=== PATIENT | female | born 1935 | race Caucasian/White ===

== ENCOUNTER 2016-05-31 13:20 | Outpatient (CLI) | payer MEDICARE, OTHER | END 2016-05-31 13:21 | disposition home or self-care (01) | DX: Z12.31 Encounter for screening mammogram for malignant neoplasm of breast (principal) ==

== ENCOUNTER 2016-06-21 08:40 | Outpatient (CLI) | payer MEDICARE, OTHER ==
[2016-06-21 12:46] LABS: ALBUMIN/GLOBULIN RATIO 1.7 (1.0-2.2); BILIRUBIN,TOTAL 0.6 mg/dL (0.2-1.0); CALCIUM 9.5 mg/dL (8.5-10.3); CREATININE 0.8 mg/dL (0.4-1.0); POTASSIUM 3.7 mmol/L (3.5-5.0); TOTAL PROTEIN 6.9 g/dL (6.7-8.2)
== END 2016-06-21 08:41 | disposition home or self-care (01) ==
LOC: LAB.WCP 08:40
PROVIDERS: ATTEND Family Medicine
DX: I10 Essential (primary) hypertension (principal)
CPT/HCPCS: 36415; 80053; 84443

== ENCOUNTER 2016-07-21 05:00 | Emergency (ER) | payer MEDICARE, OTHER ==
[2016-07-21] MEDS ORDERED: MORPHINE 2 MG/ML SYRINGE IVP STA (05:36)
[2016-07-21] MEDS ORDERED: MORPHINE 2 MG/ML SYRINGE ONE (05:39)
[2016-07-21] MEDS ORDERED: IOPAMIDOL-300 100 ML VIAL IVP ONE (06:31)
== END 2016-07-21 07:19 | disposition home or self-care (01) ==
DX: R10.33 Periumbilical pain (principal); Z87.19 Personal history of other diseases of the digestive system
CPT/HCPCS: 36415; 74177; 80053; 81003; 83605; 83615; 83690; 85025; 96374; 99284; Q9967

== ENCOUNTER 2016-07-25 12:19 | Inpatient (IN) | payer MEDICARE, OTHER ==
[2016-07-25] MEDS ORDERED: ONDANSETRON 4 MG/2 ML VIAL IVP STA (12:41)
[2016-07-25] MEDS ORDERED: SODIUM CHLORIDE 0.9% 1,000 ML IV ONE (12:41)
[2016-07-25] MEDS ORDERED: ONDANSETRON 4 MG/2 ML VIAL ONE (12:49)
[2016-07-25] MEDS ORDERED: SODIUM CHLORIDE 0.9% 500 ML IV ONE (13:36)
[2016-07-25] MEDS ORDERED: IOPAMIDOL-300 50 ML VIAL PO ONE (14:43)
[2016-07-25] MEDS ORDERED: IOPAMIDOL-300 100 ML VIAL IVP ONE (14:43)
[2016-07-25] MEDS ORDERED: HYDROmorphone 1 MG/ML SYRINGE IVP PRN ×2 (15:29→16:31)
[2016-07-25] MEDS ORDERED: SODIUM CHLORIDE FLUSH 0.9% 10 ML SYRINGE IVP PRN (15:29)
[2016-07-25] MEDS ORDERED: ONDANSETRON 4 MG/2 ML VIAL IVP PRN (15:29)
[2016-07-25] MEDS: NS W/20 MEQ KCL 1,000 ML IV SCH (17:30)
[2016-07-25] MEDS: SODIUM CHLORIDE FLUSH 0.9% 10 ML SYRINGE IVP SCH (23:22)
[2016-07-26] MEDS: SODIUM CHLORIDE FLUSH 0.9% 10 ML SYRINGE IVP SCH (05:32)
[2016-07-26] MEDS: NS W/20 MEQ KCL 1,000 ML IV SCH (05:58)
[2016-07-26] MEDS ORDERED: POLYETHYLENE GLYCOL 3350 17 GM PACKET PO SCH (09:00)
== END 2016-07-26 14:45 | disposition home or self-care (01) | DRG 389 ==
DX: K56.60 Unspecified intestinal obstruction (principal); K51.90 Ulcerative colitis, unspecified, without complications; N17.9 Acute kidney failure, unspecified; E86.0 Dehydration; N28.89 Other specified disorders of kidney and ureter; K42.9 Umbilical hernia without obstruction or gangrene; Z79.899 Other long term (current) drug therapy

== ENCOUNTER 2016-08-15 10:20 | Outpatient (CLI) | payer MEDICARE, OTHER ==
[2016-08-15] MEDS ORDERED: GADOBUTROL 7.5 MMOL/7.5 ML VIAL IVP ONE ×2 (11:34)
== END 2016-08-15 10:21 | disposition home or self-care (01) ==
DX: N28.9 Disorder of kidney and ureter, unspecified (principal)
CPT/HCPCS: 74183; A9585

== ENCOUNTER 2017-03-12 08:00 | Outpatient (CLI) | payer MEDICARE, OTHER ==
[2017-03-12 14:13] LABS: CALCIUM 9.4 mg/dL (8.5-10.3); CREATININE 0.9 mg/dL (0.4-1.0); POTASSIUM 3.9 mmol/L (3.5-5.0)
== END 2017-03-12 08:01 | disposition home or self-care (01) ==
LOC: LAB.WCP 08:00
PROVIDERS: ATTEND Family Medicine
DX: N28.89 Other specified disorders of kidney and ureter (principal)
CPT/HCPCS: 36415; 80048

== ENCOUNTER 2017-07-16 10:22 | Outpatient (CLI) | payer MEDICARE, OTHER ==
--- NOTE | 2017-07-17 11:40 | DEXA Report ---
DEXA SCAN: 07/16/2017 CLINICAL INDICATION: Bone disorder. TECHNIQUE: Dual energy x-ray absorptiometry (DXA) was performed on a [employer] system. Regions measured are the AP spine, femoral neck, and, if needed, forearm. COMPARISON: None. In accordance with the International Society for Clinical Densitometry (ISCD) guidelines, data from previous exams may be reanalyzed using current recommendations and techniques. This is done to allow a more accurate basis for comparison with the current study. FINDINGS: The data for the lumbar spine is as follows: REGION BMD (g/cm/cm) T-SCORE Z-SCORE L1 1.023 -0.9 0.9 L2 1.249 0.4 2.2 L3 1.173 -0.2 1.5 L4 1.301 0.8 2.6 TOTAL 1.191 0.1 1.9 NOTE: All evaluable vertebrae are used for classification. The data for the hip is as follows: REGION BMD (g/cm/cm) T-SCORE Z-SCORE Neck 0.845 -1.4 0.8 TOTAL 0.816 -1.5 0.6 NOTE: The femoral neck or total proximal femur, whichever is lowest, is used for classification. IMPRESSION: THE WHO CLASSIFICATION BASED ON THE INTERNATIONAL REFERENCE STANDARD IS OSTEOPENIA. THE FRACTURE RISK IS INCREASED. RECOMMENDATION: Patients with diagnosis of osteoporosis or osteopenia should have regular bone mineral density assessment. For those eligible for Medicare, routine testing is allowed once every 2 years. Testing frequency can be increased for patients who have rapidly progressing disease or for those who are receiving medical therapy to restore bone mass. COMMENT: World Health Organization (WHO) definitions for osteoporosis and osteopenia: NORMAL BMD: T-score at 1.0 or higher, fracture risk is low. OSTEOPENIA BMD: T-score between 1.0 and -2.5, fracture risk is increased. OSTEOPOROSIS BMD: T-score at 2.5 or lower, fracture risk high. National Osteoporosis Foundation recommends: 1. Obtain adequate dietary calcium (at least 1200 mg per day) and vitamin D (400 -800 international units per day). 2. Participate, as appropriate, in regular weightbearing and muscle- strengthening exercise. 3. Avoid tobacco use and reduce alcohol and caffeine intake. 4. For more detailed information see the website at www.NOF.org. MTDD
== END 2017-07-16 10:23 | disposition home or self-care (01) ==
LOC: DI 10:22
PROVIDERS: ATTEND Family Medicine
DX: M85.88 Other specified disorders of bone density and structure, other site (principal)
CPT/HCPCS: 77080

== ENCOUNTER 2018-07-31 08:00 | Outpatient (CLI) | payer MEDICARE, OTHER | END 2018-07-31 23:59 | disposition home or self-care (01) | LOC: LAB.WCP 08:00 | PROVIDERS: ATTEND Family Medicine | DX: J11.1 Influenza due to unidentified influenza virus with other respiratory manifestations (principal) | CPT/HCPCS: 87275; 87276 ==

== ENCOUNTER 2018-07-31 14:05 | Outpatient (CLI) | payer MEDICARE, OTHER ==
--- NOTE | 2018-07-31 16:11 | XRAY Report ---
Reason: FLU SYNDROME Procedure Date: 07/31/2018 Accession Number: [id number] / [id number] Procedure: WCP - Chest 2 View X-Ray CPT Code: 80691 FULL RESULT: EXAM: CHEST RADIOGRAPHY EXAM DATE: 07/31/2018 02:25 PM. CLINICAL HISTORY: Flu syndrome. COMPARISON: None. TECHNIQUE: 2 views. FINDINGS: Lungs/Pleura: No focal opacities evident. No pleural effusion. No pneumothorax. Lungs are mildly hyperinflated with increased lucency to the upper lung zones. Mediastinum: Heart and mediastinal contours are unremarkable. Other: None. IMPRESSION: 1. No infiltrates. 2. Possible upper lobe emphysematous change. RADIA
== END 2018-07-31 14:06 | disposition home or self-care (01) ==
LOC: DI.WCP 14:05
PROVIDERS: ATTEND Family Medicine
DX: J11.1 Influenza due to unidentified influenza virus with other respiratory manifestations (principal)
CPT/HCPCS: 71046; 87275; 87276

== ENCOUNTER 2019-04-06 13:18 | Outpatient (CLI) | payer MEDICARE, OTHER ==
--- NOTE | 2019-04-06 14:02 | Mammography Report ---
Reason: ROUTINE MAMMO Procedure Date: 04/06/2019 Accession Number: [id number] / [id number] Procedure: MGN - Screening Mammo Dig Bilat CPT Code: Final Report FULL RESULT: EXAM: Screening Mammo Dig Bilat DATE: 04/06/2019 1:45 PM CLINICAL HISTORY: The patient is an asymptomatic 84-year-old female. No reported family history of breast cancer. TECHNIQUE: (B) - Bilateral CC and MLO views were obtained. COMPARISON: 05/31/2016 PARENCHYMAL PATTERN: (D) - The breasts demonstrate heterogeneously dense fibroglandular parenchyma bilaterally. This limits mammographic sensitivity. FINDINGS: The pattern of asymmetry is stable given positional variation. There are no suspicious masses, calcifications, or areas of distortion. IMPRESSION: Negative examination. BI-RADS category 1. RECOMMENDATION: (ANNUAL) - Recommend routine annual screening mammography. BI-RADS CATEGORY: (1) - Negative. STANDARD QUALIFYING STATEMENTS: 1. This examination was not reviewed with the aid of Computer-Aided Detection (CAD). 2. A negative or benign imaging report should not preclude biopsy if clinically suspicious findings are present. 3. Dense breasts may obscure an underlying neoplasm.
== END 2019-04-06 13:19 | disposition home or self-care (01) ==
LOC: DI.N 13:18
DX: Z12.31 Encounter for screening mammogram for malignant neoplasm of breast (principal)
CPT/HCPCS: 77067

== ENCOUNTER 2020-04-19 08:37 | Outpatient (CLI) | payer MEDICARE, OTHER ==
--- NOTE | 2020-04-20 08:47 | Mammography Report ---
BILATERAL DIGITAL SCREENING MAMMOGRAM 3D/2D: 04/19/2020 CLINICAL: Routine screening. Comparison is made to exams dated: 04/06/2019 mammogram, 05/31/2016 mammogram, 05/19/2015 mammogram, 01/14/2014 ultrasound, 01/14/2014 mammogram, and 03/02/2010 mammogram - [facility]. The tissue of both breasts is predominantly fatty. There is a stable benign focal asymmetry in both breasts. No significant masses, calcifications, or other findings are seen in either breast. There has been no significant interval change. IMPRESSION: BENIGN There is no mammographic evidence of malignancy. A 1 year screening mammogram is recommended. This exam was interpreted at Station ID: [id number]. NOTE: For mammograms, a report in lay terms will be sent to the patient. Approximately 15% of breast malignancies will not be visualized mammographically. In the management of a palpable breast mass, a negative mammogram must not discourage biopsy of a clinically suspicious lesion. Electronically Signed By: Tc Guillermo acr/penrad:04/19/2020 11:05:15 ACR BI-RADS Category 2: Benign Finding(s) 3342F PARENCHYMAL PATTERN: (F) - The breast(s) demonstrate(s) diffuse fatty replacement. BI-RADS CATEGORY: (2) - 2 RECOMMENDATION: (ANNUAL) - Recommend routine annual screening mammography. [id number] 1 year screening LATERALITY: (B)
== END 2020-04-19 08:38 | disposition home or self-care (01) ==
LOC: DI.N 08:37
DX: Z12.31 Encounter for screening mammogram for malignant neoplasm of breast (principal)

== ENCOUNTER 2021-04-28 09:53 | Outpatient (CLI) | payer MEDICARE, OTHER ==
[2021-04-28 12:23] LABS: BASOPHILS # (AUTO) 0.1 10^3/uL (0.0-0.1); EOSINOPHILS % (AUTO) 0.4 %; HCT - HEMATOCRIT 44.2 % (37.0-47.0); HGB - HEMOGLOBIN 14.5 g/dL (12.0-16.0); LYMPHOCYTES % (AUTO) 19.4 %; MEAN CORPUSCULAR HEMOGLOBIN 32.5 pg (27.0-31.0); MEAN CORPUSCULAR HGB CONC 32.8 g/dL (32.0-36.0); MEAN CORPUSCULAR VOLUME 99.1 fL (81.0-99.0); MEAN PLATELET VOLUME 10.4 fL (7.9-10.8); MONOCYTES # (AUTO) 0.4 10^3/uL (0.0-1.0); MONOCYTES % (AUTO) 8.4 %; NEUTROPHILS # (AUTO) 3.6 10^3/uL (1.5-6.6); NEUTROPHILS % (AUTO) 70.6 %; PLT - PLATELET COUNT 270 10^3/uL (130-450); RED BLOOD COUNT 4.46 10^6/uL (4.20-5.40); RED CELL DISTRIBUTION WIDTH 12.9 % (12.0-15.0); WHITE BLOOD COUNT 5.1 x10^3/uL (4.8-10.8)
[2021-04-28 12:35] LABS: GLUCOSE, URINE (UA) NEGATIVE (NEGATIVE); KETONES,URINE (UA) 15 mg/dL (NEGATIVE); LEUKOCYTE ESTERASE, URINE TRACE (NEGATIVE); NITRITE,URINE NEGATIVE (NEGATIVE); OCCULT BLOOD,URINE SMALL (NEGATIVE); PH,URINE 5.5 PH (5.0-7.5); PROTEIN,URINE TRACE mg/dL (NEGATIVE); UROBILINOGEN,URINE 0.2 (NORMAL) E.U./dL (NORMAL)
[2021-04-28 12:44] LABS: BILIRUBIN,URINE NEGATIVE (NEGATIVE); CLARITY,URINE CLEAR (CLEAR); ICTOTEST,URINE NEGATIVE; WBC,URINE 0-3 /HPF (0-5)
[2021-04-28 12:45] LABS: BACTERIA,URINE None Seen /HPF (None Seen); RBC,URINE 0-5 /HPF (0-5); SQUAMOUS EPITHELIAL CELL,UR RARE Squamous (<= Few)
[2021-04-28 12:46] LABS: ALBUMIN 4.6 g/dL (3.2-5.5); ALBUMIN/GLOBULIN RATIO 1.4 (1.0-2.2); ALKALINE PHOSPHATASE 54 IU/L (42-121); ALT ALANINE AMINOTRANSFERASE 18 IU/L (10-60); AST ASPARTATE AMINOTRANSFERASE 24 IU/L (10-42); BILIRUBIN,TOTAL 0.8 mg/dL (0.2-1.0); BUN - BLOOD UREA NITROGEN 17 mg/dL (6-20); CALCIUM 9.5 mg/dL (8.5-10.3); CARBON DIOXIDE - CO2 28 mmol/L (21-32); CHLORIDE 98 mmol/L (101-111); CHOL/HDL RATIO 2.5 (<4.4); CHOLESTEROL 203 mg/dL; CREATININE 0.9 mg/dL (0.4-1.0); GFR - MDRD 59 (>89); GLUCOSE 88 mg/dL (70-100); HDL CHOLESTEROL 82 mg/dL; LDL CHOLESTEROL,CALCULATED 107 mg/dL; LDL/HDL RATIO 1.3 (<4.4); POTASSIUM 3.8 mmol/L (3.5-5.0); SODIUM 137 mmol/L (135-145); TOTAL PROTEIN 7.8 g/dL (6.7-8.2); TRIGLYCERIDES 69 mg/dL; VLDL CHOLESTEROL 14 mg/dL
[2021-04-28 12:59] LABS: THYROID STIMULATING HORMONE 1.31 uIU/mL (0.34-5.60)
== END 2021-04-28 23:59 | disposition home or self-care (01) ==
LOC: LAB.WCP 09:53
PROVIDERS: ATTEND Nurse Practitioner
DX: I10 Essential (primary) hypertension (principal); R53.83 Other fatigue
CPT/HCPCS: 36415; 80053; 80061; 81001; 83721; 84443; 85025; 87086

== ENCOUNTER 2021-06-09 12:45 | Outpatient (CLI) | payer MEDICARE, OTHER ==
--- NOTE | 2021-06-09 14:43 | DEXA Report ---
PROCEDURE: Dexa Spine and/or Hip INDICATIONS: OSTEOPOROSIS TECHNIQUE: Dual energy x-ray absorptiometry (DXA) was performed on a [employer] System. Regions measur ed are the AP Spine, femoral neck, and if needed forearm. COMPARISON: 07/16/2017. FINDINGS: Lumbar Spine: Bone Mineral Density 1.212 g/cm/cm,T score 0.3, statistically unchanged from most recent prior humaira dy. The measured bone mineral density of the lumbar spine is spuriously elevated by degenerative disc disease and associated sclerotic endplate change. Left Hip: Bone Mineral Density 0.804 g/cm/cm,T score -1.6, statistically unchanged since the previous study. Left Femoral Neck: Bone Mineral Density 0.843 g/cm/cm, T score -1.4. (T score greater or equal to -1.0: NORMAL) (T score from -1.1 to -2.4: OSTEOPENIA) (T score less than or equal to -2.5 to: OSTEOPOROSIS) Impression: Osteopenia. No significant change in bone mineral density compared to the prior study. Patients with diagnosis of osteoporosis or osteopenia should have regular bone mineral density assess ment. For those eligible for Medicare, routine testing is allowed once every 2 years. Testing frequ ency can be increased for patients who have rapidly progressing disease or for those who are receivin g medical therapy to restore bone mass. Reviewed by: Heath Salazar MD on 06/09/2021 2:42 PM PST Approved by: Heath Salazar MD on 06/09/2021 2:42 PM PST Station ID: [id number]
== END 2021-06-09 12:46 | disposition home or self-care (01) ==
LOC: DI 12:45
PROVIDERS: ATTEND Nurse Practitioner
DX: M81.0 Age-related osteoporosis without current pathological fracture (principal); M85.89 Other specified disorders of bone density and structure, multiple sites

== ENCOUNTER 2021-09-15 12:44 | Outpatient (CLI) | payer MEDICARE, OTHER ==
--- NOTE | 2021-09-15 14:22 | Ultrasound Report ---
PROCEDURE: Retroperitoneal INDICATIONS: RENAL MASS TECHNIQUE: Real-time scanning was performed of the retroperitoneal organs, with image documentation. COMPARISON: Reference is made to the MRI abdomen dated March 15, 2017 FINDINGS: RIGHT KIDNEY: Measures 9.7 cm in length. The renal cortex thickness measures 1 cm. Normal contour. Preservation of the cortical thickness and cortical medullary differentiation. No hyd ronephrosis. Multiple hypoechoic lesions are seen, some demonstrating septations, most consistent wit h cysts. The largest lesion measures 2 x 1.9 x 1.8 cm. LEFT KIDNEY: Measures 9.9 cm in length. The renal cortex thickness measures 1.2 cm. Normal contour. Preservation of the cortical thickness and cortical medullary differentiation. No hyd ronephrosis. URINARY BLADDER: Prevoid volume: 107 mL. Post void volume: 13 mL. Both ureteral jets are visualized. OTHER: None. IMPRESSION: 1.Multiple hypoechoic lesions in the left kidney as detailed above, most consistent with cysts; brian r characterized on the prior MRI abdomen. Reviewed by: Nakul Wells MD on 09/15/2021 2:21 PM PDT Approved by: Nakul Wells MD on 09/15/2021 2:21 PM PDT Station ID: [id number]
== END 2021-09-15 12:45 | disposition home or self-care (01) ==
LOC: DI 12:44
PROVIDERS: ATTEND Nurse Practitioner Family
DX: N28.9 Disorder of kidney and ureter, unspecified (principal)

== ENCOUNTER 2022-08-14 15:51 | Outpatient (CLI) | payer MEDICARE, OTHER ==
--- NOTE | 2022-08-14 19:28 | Ultrasound Report ---
PROCEDURE: Retroperitoneal INDICATIONS: RENAL MASS TECHNIQUE: Real-time scanning was performed of the retroperitoneal organs, with image documentation. COMPARISON: None. FINDINGS: Kidneys: Kidneys are normal in size. Right kidney measures 9.5 cm long; left kidney measures 9.9 cm long. Right renal cortical thickness is 0.9 cm; left renal cortical thickness is 1.5 cm. No solid masses, hydronephrosis, or nephrolithiasis. Right renal cysts present. Largest measures 1.9 cm and co ntains a thin septation Bladder: Pre-void bladder volume is 22.3 mL. Post-void residual is 0 mL. Pre-void images demonstra te no intraluminal masses or stones. On pre-void images, right ureteral jets are noted with color Do ppler interrogation. (Of note, ureteral jets may not be detectable in up to 25% of cases due to insu fficient differences in specific gravity between ureteral and bladder urine). Miscellaneous: No free abdominal fluid. IMPRESSION: Stable septated right renal cyst Mild right renal cortical thinning Reviewed by: Bill Lynch MD on 08/14/2022 6:27 PM AKDT Approved by: Bill Lynch MD on 08/14/2022 6:27 PM AKDT Station ID: [id number]
== END 2022-08-14 15:52 | disposition home or self-care (01) ==
LOC: DI 15:51
PROVIDERS: ATTEND Nurse Practitioner
DX: N28.1 Cyst of kidney, acquired (principal)

== ENCOUNTER 2022-08-22 12:25 | Outpatient (CLI) | payer MEDICARE, OTHER ==
--- NOTE | 2022-08-23 08:49 | Mammography Report ---
BILATERAL DIGITAL SCREENING MAMMOGRAM 3D/2D: 08/22/2022 CLINICAL: Routine screening. Comparison is made to exams dated: 04/19/2020 mammogram, 04/06/2019 mammogram, 05/31/2016 mammogram, mammogram, 01/14/2014 ultrasound, and 01/14/2014 mammogram - [facility]. There are scattered areas of fibroglandular density in both breasts (category b / 25%-50% glandular t issue). There is a stable benign focal asymmetry in both breasts. No significant masses, calcifications, or other findings are seen in either breast. There has been no significant interval change. IMPRESSION: BENIGN There is no mammographic evidence of malignancy. A 1 year screening mammogram is recommended. This exam was interpreted at Station ID: [id number]. NOTE: For mammograms, a report in lay terms will be sent to the patient. Approximately 15% of breast malignancies will not be visualized mammographically. In the management of a palpable breast mass, a negative mammogram must not discourage biopsy of a clinically suspicious lesion. Electronically Signed By: [employer] negron/natividad:08/22/2022 13:15:41 letter sent: No_Letter ACR BI-RADS Category 2: Benign Finding(s) 3342F PARENCHYMAL PATTERN: (A) - The breast(s) demonstrate(s) scattered fibroglandular densities. BI-RADS CATEGORY: (2) - 2 Mammogram [id number] 1 year screening LATERALITY: (B)
== END 2022-08-22 12:26 | disposition home or self-care (01) ==
LOC: DI.N 12:25
PROVIDERS: ATTEND Nurse Practitioner
DX: Z12.31 Encounter for screening mammogram for malignant neoplasm of breast (principal)